=== PATIENT | female | born 1985 ===

== ENCOUNTER 2018-03-27 04:58 | Emergency (ER) | payer OTHER ==
[2018-03-27 04:59] VITALS: BMI 27.5
--- NOTE | 2018-03-27 05:57 | ED PDOC ---
Arrival/HPI - General Chief Complaint: GI Problem Time Seen by Provider: 03/27/18 05:46 Historian: Patient - History of Present Illness Narrative History of Present Illness (Text): 03/27/18 05:57 32 year old female, with past medical history of gastric sleeve (2014) and depression, presents to the Emergency department complaining of recurrent upper abdominal discomfort associated with nausea since yesterday. Patient additionally informs one episode of diarrhea yesterday but none now. Patient states she was evaluated at [facility] yesterday for the mentioned symptoms , where labs, X-ray and CT of Abdomen were noted negative. Patient was later discharged home with dietary restrictions. As per patient, pain persisted after going home prompting her to visit the ER this morning. Patient denies any fever , chills, vomiting, hematochezia, urinary output changes, changes in bowel movement, chest pain, shortness of breath or any other complaints. Time/Duration: 24 hours Symptom Onset: Gradual Symptom Course: Unchanged Quality: Aching Activities at Onset: Light Context: Home Past Medical History - Provider Review Nursing Documentation Reviewed: Yes - Infectious Disease Hx of Infectious Diseases: None - Cardiac Hx Hypertension: Yes - Pulmonary Hx Respiratory Disorders: No - Neurological Hx Neurological Disorder: No - HEENT Hx HEENT Disorder: No Other/Comment: PT. HAS SEASONAL ALLERGIES - Renal Hx Renal Disorder: No - Endocrine/Metabolic Hx Endocrine Disorders: No - Hematological/Oncological Hx Anemia: Yes - Integumentary Hx Dermatological Disorder: No - Musculoskeletal/Rheumatological Hx Musculoskeletal Disorders: No Hx Falls: No - Gastrointestinal Hx Gastrointestinal Disorders: No - Genitourinary/Gynecological Hx Genitourinary Disorders: Yes Other/Comment: per pt's mom, pt has "irregular" menstruation - Psychiatric Hx Psychophysiologic Disorder: No Hx Substance Use: No (Canabis) - Surgical History Hx Gastric Bypass Surgery: Yes - Anesthesia Hx Anesthesia: Yes Hx Anesthesia Reactions: No Hx Malignant Hyperthermia: No - Suicidal Assessment Feels Threatened In Home Enviroment: No Family/Social History - Physician Review Nursing Documentation Reviewed: Yes Family/Social History: No Known Family HX Smoking Status: Light Smoker < 10 Cigarettes Daily Hx Alcohol Use: Yes (ocassionally) Hx Substance Use: No (Canabis) Allergies/Home Meds Allergies/Adverse Reactions: Allergies No Known Allergies Allergy (Verified 03/26/18 11:59) Home Medications: Home Meds Medication Instructions Recorded Confirmed Sertraline [Zoloft] 50 mg PO DAILY 03/26/18 03/27/18 Review of Systems - Physician Review All systems were reviewed & negative as marked: Yes - Review of Systems Constitutional: Normal. absent: Fevers Eyes: Normal ENT: Normal Respiratory: Normal. absent: SOB Cardiovascular: Normal. absent: Chest Pain Gastrointestinal: Abdominal Pain, Nausea. absent: Stool Changes, Diarrhea, Vomiting, Hematochezia Genitourinary Female: Normal. absent: Urine Output Changes Musculoskeletal: Normal Skin: Normal Neurological: Normal Endocrine: Normal Hemo/Lymphatic: Normal Psychiatric: Normal Physical Exam Vital Signs Reviewed: Yes Vital Signs Temp Pulse Resp BP Pulse Ox 03/27/18 05:39 98 F 74 19 134/83 100 Temperature: Afebrile Blood Pressure: Normal Pulse: Regular Respiratory Rate: Normal Appearance: Positive for: Well-Appearing, Non-Toxic, Comfortable Pain Distress: None Mental Status: Positive for: Alert and Oriented X 3 - Systems Exam Head: Present: Atraumatic, Normocephalic Pupils: Present: PERRL Extroacular Muscles: Present: EOMI Conjunctiva: Present: Normal Mouth: Present: Moist Mucous Membranes Neck: Present: Normal Range of Motion Respiratory/Chest: Present: Clear to Auscultation, Good Air Exchange. No: Respiratory Distress, Accessory Muscle Use Cardiovascular: Present: Regular Rate and Rhythm, Normal S1, S2. No: Murmurs Abdomen: Present: Tenderness (soft, palpable tenderness to epigastric area.), Normal Bowel Sounds. No: Distention, Peritoneal Signs, Rebound, Guarding Back: Present: Normal Inspection Upper Extremity: Present: Normal Inspection. No: Cyanosis, Edema Lower Extremity: Present: Normal Inspection. No: Edema Neurological: Present: GCS=15, CN II-XII Intact, Speech Normal Skin: Present: Warm, Dry, Normal Color. No: Rashes Psychiatric: Present: Alert, Oriented x 3, Normal Insight, Normal Concentration Medical Decision Making ED Course and Treatment: 03/27/18 05:56 Impression: 32 year old female presents to the Emergency department for epigastric discomfort associated with nausea. Plan: -- Labs -- Protonix -- Toradol -- Zofran -- Urinalysis -- Reassess and disposition Prior Visits: Notes and results from previous visits were reviewed. Progress Notes: 03/27/18 07:00 Case endorsed to /pending labs/reassess/final disposition - Medication Orders Current Medication Orders: Sodium Chloride (Sodium Chloride 0.9%) 1,000 mls @ 999 mls/hr IV .Q1H1M STA Stop: 03/27/18 06:56 Last Admin: 03/27/18 06:18 Dose: 999 mls/hr eMAR Start Stop Document 03/27/18 06:18 IT (Rec: 03/27/18 06:18 IT [id number]) Intravenous Solution Start Date 03/27/18 Start Time 06:18 End Date 03/27/18 Discontinued Medications Ketorolac Tromethamine (Toradol) 30 mg IVP ONCE ONE Stop: 03/27/18 05:57 Last Admin: 03/27/18 06:17 Dose: 30 mg MAR Pain Assessment Document 03/27/18 06:17 IT (Rec: 03/27/18 06:17 IT [id number]) Pain Reassessment Is this a pain reassessment? No Sleep Is patient sleeping during reassessment? No Presence of Pain Presence of Pain Yes IVP Administration Document 03/27/18 06:17 IT (Rec: 03/27/18 06:17 IT [id number]) Charges for Administration # of IVP Administrations 1 Ondansetron HCl (Zofran Inj) 4 mg IVP ONCE ONE Stop: 03/27/18 05:57 Last Admin: 03/27/18 06:17 Dose: 4 mg IVP Administration Document 03/27/18 06:17 IT (Rec: 03/27/18 06:17 IT [id number]) Charges for Administration # of IVP Administrations 1 Pantoprazole Sodium (Protonix Inj) 40 mg IVP ONCE STA Stop: 03/27/18 05:57 Last Admin: 03/27/18 06:17 Dose: 40 mg IVP Administration Document 03/27/18 06:17 IT (Rec: 03/27/18 06:17 IT [id number]) Charges for Administration # of IVP Administrations 1 - Scribe Statement The provider has reviewed the documentation as recorded by the Scribe Alek Keenan. All medical record entries made by the Scribe were at my direction and personally dictated by me. I have reviewed the chart and agree that the record accurately reflects my personal performance of the history, physical exam, medical decision making, and the department course for this patient. I have also personally directed, reviewed, and agree with the discharge instructions and disposition. Disposition/Present on Arrival - Present on Arrival Any Indicators Present on Arrival: No History of DVT/PE: No History of Uncontrolled Diabetes: No Urinary Catheter: No History of Decub. Ulcer: No History Surgical Site Infection Following: None - Disposition Have Diagnosis and Disposition been Completed?: No Diagnosis: Abdominal pain Disposition Time: 07:00 Condition: STABLE Forms: [employer] (Maltese)
[2018-03-27] MEDS: Sodium Chloride 0.9% 1,000 ML IV STA (06:18)
[2018-03-27 06:43] LABS: HEMOGLOBIN 9.6 g/dL (12.0-16.0); MEAN CELL VOLUME 66.1 fl (80.0-105.0); MEAN CORPUSCULAR HEMOGLOBIN 20.5 pg (25.0-35.0); MEAN PLATELET VOLUME 9.4 fl (7.0-11.0); RBC 4.69 10^6/uL (3.5-6.1); RED CELL DISTRIBUTION WIDTH 16.5 % (11.5-14.5); URINE BILIRUBIN NEGATIVE (NEGATIVE); URINE BLOOD NEGATIVE (NEGATIVE); URINE GLUCOSE (UA) NEGATIVE (NEGATIVE); URINE LEUKOCYTE ESTERASE NEGATIVE Leu/uL (NEGATIVE); URINE PROTEIN NEGATIVE mg/dL (<30 mg/dL); URINE UROBILINOGEN 0.2 E.U./dL (<1 E.U./dL); WHITE BLOOD COUNT 5.2 10^3/ul (4.5-11.0)
[2018-03-27 06:53] LABS: ALB/GLOB RATIO 1.2 (1.1-1.8); ALBUMIN 3.7 g/dL (3.0-4.8); ALT/SGPT 36 U/L (7-56); AST/SGOT 31 U/L (14-36); BLOOD UREA NITROGEN 9 mg/dL (7-21); CALCIUM 8.8 mg/dL (8.4-10.5); GFR AFRICAN-AMERICAN > 60; GFR NON-AFRICAN AMERICAN > 60; LIPASE 38 U/L (23-300)
[2018-03-27 06:56] LABS: URINE APPEARANCE CLEAR (CLEAR); URINE COLOR YELLOW (YELLOW)
--- NOTE | 2018-03-27 07:34 | ED PDOC ---
Physical Exam Vital Signs Temp Pulse Resp BP Pulse Ox 03/27/18 07:54 98.3 F 78 18 135/88 100 03/27/18 05:39 98 F 74 19 134/83 100 Temperature: Afebrile Blood Pressure: Normal Pulse: Regular Respiratory Rate: Normal Appearance: Positive for: Well-Appearing, Non-Toxic, Comfortable Pain Distress: None Mental Status: Positive for: Alert and Oriented X 3 - Systems Exam Head: Present: Atraumatic, Normocephalic Pupils: Present: PERRL Extroacular Muscles: Present: EOMI Conjunctiva: Present: Normal Mouth: Present: Moist Mucous Membranes Neck: Present: Normal Range of Motion Respiratory/Chest: Present: Clear to Auscultation, Good Air Exchange. No: Respiratory Distress, Accessory Muscle Use Cardiovascular: Present: Regular Rate and Rhythm, Normal S1, S2. No: Murmurs Abdomen: No: Tenderness, Distention, Peritoneal Signs Back: Present: Normal Inspection Upper Extremity: Present: Normal Inspection. No: Cyanosis, Edema Lower Extremity: Present: Normal Inspection. No: Edema Neurological: Present: GCS=15, CN II-XII Intact, Speech Normal Skin: Present: Warm, Dry, Normal Color. No: Rashes Psychiatric: Present: Alert, Oriented x 3, Normal Insight, Normal Concentration Medical Decision Making ED Course and Treatment: 03/27/18 07:33 Patient endorsed to me by . Follow-up on labs. Will reevaluate and dispo. 03/27/18 08:34 On reevaluation patient is feeling better with no abdominal pain, and is tolerating PO fluids. Patient already has a prescription for Protonix and I will give further medications on discharge. I explained to patient GI diet, avoid nsaid, coffee, spicey or fatty foods, and I explained to her the importance of follow-up with ([facility]). She will also follow up with her PMD. - Lab Interpretations Lab Results: 03/27/18 06:00 03/27/18 06:00 Lab Results 03/27/18 06:00: WBC 5.2, RBC 4.69, Hgb 9.6 L, Hct 31.0 L, MCV 66.1 L, MCH 20.5 L , MCHC 31.0, RDW 16.5 H, Plt Count 272, MPV 9.4 03/27/18 06:00: Sodium 141, Potassium 3.5 L, Chloride 105, Carbon Dioxide 26, Anion Gap 13, BUN 9, Creatinine 0.6 L, Est GFR ( Amer) > 60, Est GFR (Non -Af Amer) > 60, Random Glucose 84, Calcium 8.8, Total Bilirubin 0.8, AST 31, ALT 36, Alkaline Phosphatase 72, Total Protein 6.8, Albumin 3.7, Globulin 3.1, Albumin/Globulin Ratio 1.2, Lipase 38 03/27/18 06:00: Urine Color Yellow, Urine Appearance Clear, Urine pH 6.0, Ur Specific [place] 1.020, Urine Protein Negative, Urine Glucose (UA) Negative, Urine Ketones Negative, Urine Blood Negative, Urine Nitrate Negative, Urine Bilirubin Negative, Urine Urobilinogen 0.2, Ur Leukocyte Esterase Negative - Medication Orders Current Medication Orders: Discontinued Medications Sodium Chloride (Sodium Chloride 0.9%) 1,000 mls @ 999 mls/hr IV .Q1H1M STA Stop: 03/27/18 06:56 Last Admin: 03/27/18 06:18 Dose: 999 mls/hr eMAR Start Stop Document 03/27/18 06:18 IT (Rec: 03/27/18 06:18 IT [id number]) Intravenous Solution Start Date 03/27/18 Start Time 06:18 End Date 03/27/18 Ketorolac Tromethamine (Toradol) 30 mg IVP ONCE ONE Stop: 03/27/18 05:57 Last Admin: 03/27/18 06:17 Dose: 30 mg MAR Pain Assessment Document 03/27/18 06:17 IT (Rec: 03/27/18 06:17 IT [id number]) Pain Reassessment Is this a pain reassessment? No Sleep Is patient sleeping during reassessment? No Presence of Pain Presence of Pain Yes IVP Administration Document 03/27/18 06:17 IT (Rec: 03/27/18 06:17 IT [id number]) Charges for Administration # of IVP Administrations 1 Ondansetron HCl (Zofran Inj) 4 mg IVP ONCE ONE Stop: 03/27/18 05:57 Last Admin: 03/27/18 06:17 Dose: 4 mg IVP Administration Document 03/27/18 06:17 IT (Rec: 03/27/18 06:17 IT [id number]) Charges for Administration # of IVP Administrations 1 Pantoprazole Sodium (Protonix Inj) 40 mg IVP ONCE STA Stop: 03/27/18 05:57 Last Admin: 03/27/18 06:17 Dose: 40 mg IVP Administration Document 03/27/18 06:17 IT (Rec: 03/27/18 06:17 IT [id number]) Charges for Administration # of IVP Administrations 1 Potassium Chloride (K-Dur 20 Meq Er Tab) 40 meq PO STAT STA Stop: 03/27/18 07:24 Last Admin: 03/27/18 07:51 Dose: 40 meq - Scribe Statement The provider has reviewed the documentation as recorded by the Scribe Hardeep Renae Provider Scribe Attestation: All medical record entries made by the Scribe were at my direction and personally dictated by me. I have reviewed the chart and agree that the record accurately reflects my personal performance of the history, physical exam, medical decision making, and the department course for this patient. I have also personally directed, reviewed, and agree with the discharge instructions and disposition. Disposition/Present on Arrival - Present on Arrival Any Indicators Present on Arrival: No History of DVT/PE: No History of Uncontrolled Diabetes: No Urinary Catheter: No History of Decub. Ulcer: No History Surgical Site Infection Following: None - Disposition Have Diagnosis and Disposition been Completed?: Yes Diagnosis: Abdominal pain Disposition: HOME/ ROUTINE Disposition Time: 08:52 Patient Plan: Discharge Condition: IMPROVED Discharge Instructions (ExitCare): Acute Abdomen (Belly Pain), Adult (DC) Additional Instructions: ROXANE SANCHEZ, thank you for letting us take care of you today. Your provider was Alfonso Swift DO and you were treated for Abdominal pain. The emergency medical care you received today was directed at your acute symptoms. If you were prescribed any medication, please fill it and take as directed. It may take several days for your symptoms to resolve. Return to the Emergency Department if your symptoms worsen, do not improve, or if you have any other problems. Please contact your doctor or call one of the physicians/clinics you have been referred to that are listed on the Patient Visit Information form that is included in your discharge packet. Bring any paperwork you were given at discharge with you along with any medications you are taking to your follow up visit. Our treatment cannot replace ongoing medical care by a primary care provider outside of the emergency department. Thank you for allowing the [facility] team to be part of your care today. If you had an X-Ray or CT scan: A Radiologist will review the ED reading if any change in treatment is needed we will contact you. If you had a blood, urine, or wound culture: It will take several days for the results, if any change in treatment is needed we will contact you. If you had an STI test: It will take 48 hours for the results. Please call after 1 week if you have not heard back. Prescriptions: Aluminum Hydroxide/Magnesium H [Maalox 30 ml] 30 ml PO Q8 #1 bottle Ondansetron ODT [Zofran ODT] 4 mg PO Q6 #14 odt Ranitidine HCl [Zantac] 150 mg PO BID PRN #30 tablet PRN Reason: Pain, Mild (1-3) Referrals: Eulalia Hodge MD [Staff Provider] - Follow up with primary Jaspreet Gross MD [Staff Provider] - Follow up with primary Forms: [employer] (Estonian), WORK NOTE
[2018-03-27] MEDS: Potassium Chloride 20 mEq ER Tab PO STA (07:51)
[2018-03-27 07:55] VITALS: PULSE 78; RESP 18
[2018-03-27 08:54] VITALS: BP 132/78; TEMP 98; O2SAT 99
== END 2018-03-27 08:52 | disposition home or self-care (01) ==
LOC: ED 04:58
DX: R10.9 Unspecified abdominal pain (principal); I10 Essential (primary) hypertension; F17.210 Nicotine dependence, cigarettes, uncomplicated
CPT/HCPCS: 80053; 81003; 83690; 85027; 96374; 96375; 99284; C9113; J1885; J2405; J7030